=== PATIENT | male | born 1995 | race Caucasian/White ===

== ENCOUNTER 2018-07-23 16:54 | Emergency (ER) | payer SELFPAY ==
[2018-07-23 17:02] VITALS: BMI 21.8
[2018-07-23] MEDS ORDERED: Tmp-Smz 800 mg-160 mg DS Tab PO STA (17:06)
[2018-07-23] MEDS ORDERED: Lidocaine 2% Inj (20ml) IJ STA (17:07)
[2018-07-23 17:10] VITALS: BP 145/80; PULSE 70; RESP 18; TEMP 97.8; O2SAT 96
--- NOTE | 2018-07-23 18:49 | ED PDOC ---
Arrival/HPI - General Chief Complaint: Finger,Hand,&Wrist Time Seen by Provider: 07/23/18 17:04 Historian: Patient - History of Present Illness Narrative History of Present Illness (Text): 07/23/18 19:17 23-year-old male presents today with a 2-day history of paronychia to the left thumb. Patient admits to nail biting. He describes a pressure sensation to the distal tip of the thumb and noticed a small area of what he believes is purulent discharge. No medications have been taken for pain at home. Patient denies numbness weakness or tingling in the extremity. No trauma or injury No chest pain or shortness of breath. No other complaints. Past Medical History - Provider Review Nursing Documentation Reviewed: Yes - Travel History Have you recently traveled outside [place] w/in the past 3 mons?: No - Infectious Disease Hx of Infectious Diseases: None - Tetanus Immunization Tetanus Immunization: Unknown - Cardiac Hx Cardiac Disorders: No - Pulmonary Hx Respiratory Disorders: No - Neurological Hx Neurological Disorder: No - HEENT Hx HEENT Disorder: Yes Other/Comment: broken jaw - Renal Hx Renal Disorder: No - Endocrine/Metabolic Hx Endocrine Disorders: No - Hematological/Oncological Hx Blood Disorders: No - Integumentary Hx Dermatological Disorder: No - Musculoskeletal/Rheumatological Hx Musculoskeletal Disorders: No - Gastrointestinal Hx Gastrointestinal Disorders: No - Genitourinary/Gynecological Hx Genitourinary Disorders: No - Psychiatric Hx Psychophysiologic Disorder: No Hx Substance Use: No - Surgical History Other/Comment: jaw wired 07/2015 - Anesthesia Hx Anesthesia: Yes Hx Anesthesia Reactions: No Hx Malignant Hyperthermia: No Family/Social History - Physician Review Nursing Documentation Reviewed: Yes Family/Social History: Unknown Family HX Smoking Status: Current Some Days Smoker Hx Alcohol Use: Yes Frequency of alcohol use: Socially Hx Substance Use: No Allergies/Home Meds Allergies/Adverse Reactions: Allergies No Known Allergies Allergy (Verified 02/28/16 10:45) Review of Systems - Review of Systems Constitutional: absent: Fatigue, Fevers Respiratory: absent: SOB, Cough Cardiovascular: absent: Chest Pain, Palpitations Gastrointestinal: absent: Abdominal Pain, Nausea, Vomiting Musculoskeletal: Arthralgias (Left thumb pain) Skin: Other (Paronychia) Psychiatric: absent: Anxiety, Depression Physical Exam Vital Signs Reviewed: Yes Vital Signs Temp Pulse Resp BP Pulse Ox 07/23/18 17:09 97.8 F 70 18 145/80 96 Temperature: Afebrile Blood Pressure: Normal Pulse: Regular Respiratory Rate: Normal Appearance: Positive for: Well-Appearing, Non-Toxic, Comfortable Pain Distress: None Mental Status: Positive for: Alert and Oriented X 3 - Systems Exam Head: Present: Atraumatic Respiratory/Chest: Present: Clear to Auscultation Cardiovascular: Present: Regular Rate and Rhythm Upper Extremity: Present: Normal ROM, NORMAL PULSES, Tenderness (Left thumb: There is tenderness swelling slight ecchymosis and small pustule noted along the proximal cuticle. full range of motion of the finger. Sensation and distal pulses intact. Cap refill less than 2.), Swelling, Erythema, Neurovascularly Intact, Capillary Refill < 2s. No: Deformity Neurological: Present: GCS=15, Speech Normal Skin: Present: Warm, Dry Psychiatric: Present: Alert, Oriented x 3 Medical Decision Making ED Course and Treatment: 07/23/18 19:19 Patient is nontoxic well-appearing in no distress. Vital signs are stable. Motrin po Bactrim DS p.o. I&D performed Procedure note: Left thumb: Paronychia Area was prepped using sterile technique. Digital block performed using 2% lidocaine 3 cc, adequate anesthesia. Using an 11 blade, a small incision was made along the proximal cuticle at the site of the pustule. A moderate amount of purulent discharge was released. Quarter inch sterile packing was placed. Dressing was applied. Patient tolerated procedure well. No complications Patient was advised to use warm compresses warm soaks return to the emergency room in 2 days for packing removal. return immediately if symptoms worsen persist or if new symptoms develop Patient verbalizes understanding of discharge instructions and need for immediate followup. All aspects of this case were discussed the attending of record. Impression: paronychia Motrin one tablet every 6 hours as needed for pain Bactrim DS: One tablet twice daily x7 days warm soaks frequently Return in 2 days for packing removal and wound check Return immediately if symptoms worsen persist or if new symptoms develop: High fevers, increasing pain, increasing redness, swelling or if any other concerning symptoms develop. Reassessment Condition: Re-examined, Improved - Medication Orders Current Medication Orders: Discontinued Medications Ibuprofen (Motrin Tab) 600 mg PO STAT STA Stop: 07/23/18 17:07 Last Admin: 07/23/18 17:20 Dose: 600 mg MAR Pain/Vitals Document 07/23/18 17:20 OCS (Rec: 07/23/18 17:22 OCS [facility] [id number] Pain Reassessment Is This A Pain ReAssessment? No Sleep Is patient sleeping during reassessment? No Presence of Pain Presence of Pain Yes Pain Scale Used Protocol: PSCALES Pain Scale Used Numeric Location Pain Location Body Site Thumb Lidocaine HCl (Lidocaine 2% 20ml Vial) 3 ml IJ ONCE STA Stop: 07/23/18 17:08 Last Admin: 07/23/18 17:56 Dose: 3 ml Trimethoprim/Sulfamethoxazole (Bactrim Ds Tab) 1 tab PO STAT STA; Protocol Stop: 07/23/18 17:07 Last Admin: 07/23/18 17:20 Dose: 1 tab Disposition/Present on Arrival - Present on Arrival Any Indicators Present on Arrival: No History of DVT/PE: No History of Uncontrolled Diabetes: No Urinary Catheter: No History of Decub. Ulcer: No History Surgical Site Infection Following: None - Disposition Have Diagnosis and Disposition been Completed?: Yes Diagnosis: Paronychia Disposition: HOME/ ROUTINE Disposition Time: 18:47 Patient Plan: Discharge Condition: GOOD Discharge Instructions (ExitCare): Paronychia (DC) Additional Instructions: Motrin one tablet every 6 hours as needed for pain Bactrim DS: One tablet twice daily x7 days warm soaks frequently Return in 2 days for packing removal and wound check Follow up with the hand doctor within the next 2 days. Return immediately if symptoms worsen persist or if new symptoms develop: High fevers, increasing pain, increasing redness, swelling or if any other concerning symptoms develop. Prescriptions: Ibuprofen [Motrin] 600 mg PO Q6H PRN #20 tab PRN Reason: pain/fever reduction Sulfamethoxazole/Trimethoprim [Bactrim DS 800 mg-160 mg] 1 tab PO BID #14 tab Referrals: Baudilio Blackman MD [Staff Provider] - Follow up with primary Tresa Watson MD [Staff Provider] - Follow up with primary Keke Thompson MD [Medical Doctor] - Follow up with primary [facility] [Outside] - [facility] with [facility] [Outside] - Follow up with primary [facility] [place] [Outside] - Follow up with primary Forms: [employer] (Sinhala), WORK NOTE
== END 2018-07-23 18:51 | disposition home or self-care (01) ==
LOC: ED 16:54
DX: L03.012 Cellulitis of left finger (principal)